=== PATIENT | male | born 1940 | race Caucasian/White ===

== ENCOUNTER → 2018-09-14 | Outpatient (CLI) | payer MEDICARE, OTHER ==
[~2018-09-14] MED LIST: ASPI325 PO; ASPI81CH PO; ATOR20; Aspirin325 MG; CLOP75 PO; COLCHICINE0.6 MG PO; ISOMON20 PO; Isosorbide Mono30 MG PO; LEVSOD112; LEVSOD112 PO; LEVSOD137 PO; LISI5; METO25ER PO; METO50; METPRE4DP PO; NEBI5 PO; PRAV20 PO; RED YEAST RICE30 GM; ROSU10TA PO; Red Yeast Rice600 MG PO
[2018-09-14 17:52] LABS: Source, Urine Clean Catch
[2018-09-14 17:57] LABS: Bilirubin, Urine Neg (Neg); Blood, Urine 3+ (Neg); Glucose Qualitative, Urine Neg (Neg); Ketones, Urine Neg (Neg); Leukocyte Esterase, Urine 3+ (Neg); Nitrite, Urine Pos (Neg); Protein, Urine 2+ (Neg); Urobilinogen, Urine 1+ (Normal)
[2018-09-14 18:09] LABS: Appearance, Urine Cloudy (Clear); Color, Urine Yellow (P-Yellow)
[2018-09-14 18:14] LABS: Bacteria Many /hpf; Squamous Epithelial Cells Not Seen /hpf (Few); White Blood Cells, Urine TNTC /hpf (0-5)
== END | disposition home or self-care (01) ==
LOC: LAB 17:47 → LAB SHORT 17:47
PROVIDERS: Family Medicine
DX: I25.110 Atherosclerotic heart disease of native coronary artery with unstable angina pectoris (principal)
CPT/HCPCS: 81001; 87077; 87086; 87186

== ENCOUNTER 2018-09-20 18:09 | Emergency (ER) | payer MEDICARE, OTHER ==
[~2018-09-20] VITALS: Ht 180.3 cm; Wt 130.6 kg
[2018-09-20 18:55] LABS: BASOPHILS ABSOLUTE AUTO 0.03 K/mm3 (0.00-0.23); BASOPHILS PERCENT AUTO 1 % (0-2); EOSINOPHILS ABSOLUTE AUTO 0.14 K/mm3 (0.00-0.68); EOSINOPHILS PERCENT AUTO 3 % (0-6); Hematocrit 32.9 % (37.0-53.0); Hemoglobin 9.7 g/dL (13.5-17.5); IMMATURE GRAN ABSOLUTE AUTO 0.03 K/mm3 (0.00-0.10); IMMATURE GRAN PERCENT AUTO 1 % (0-1); LYMPHOCYTES ABSOLUTE AUTO 0.49 K/mm3 (0.84-5.20); LYMPHOCYTES PERCENT AUTO 10 % (21-46); MONOCYTES PERCENT AUTO 6 % (4-13); Mean Corpuscular HGB 31.1 pg (26.0-34.0); Mean Corpuscular HGB Conc 29.5 g/dL (31.5-36.5); Mean Corpuscular Volume 105 fL (80-100); NEUTROPHILS ABSOLUTE AUTO 4.18 K/mm3 (1.96-9.15); NEUTROPHILS PERCENT AUTO 81 % (41-73); Platelet Count 194 K/mm3 (150-400); RDW Coefficient Variation 17.4 % (11.7-14.2); RDW Standard Deviation 66.4 fL (35.1-46.3); Red Blood Cell Count 3.12 M/mm3 (4.30-5.90); White Blood Cell Count 5.17 K/mm3 (4.00-11.30)
[2018-09-20 19:19] LABS: Alanine Aminotransfer (ALT/SGP 26 U/L (12-78); Albumin, Blood 3.4 g/dL (3.4-5.0); Albumin/Globulin Ratio 1.1 (0.8-1.8); Alk Phos 203 U/L (50-136); Anion Gap 5 mmol/L (6-16); Aspartate Aminotrans (AST/SGOT 21 U/L (12-37); Bilirubin, Total 0.9 mg/dL (0.1-1.0); Blood Urea Nitrogen 14 mg/dL (8-24); Bun/Creatinine Ratio 15.1 (12.0-20.0); CO2, Blood 29 mmol/L (21-32); Calcium, Blood 8.6 mg/dL (8.5-10.1); Chloride, Blood 105 mmol/L (98-108); Creatinine, Blood 0.93 mg/dL (0.60-1.20); Glomerular Filtration Rate >60 (60-); Glucose, Blood 96 mg/dL (70-99); Potassium, Blood 3.5 mmol/L (3.5-5.5); Sodium, Blood 139 mmol/L (136-145); Total Protein, Blood 6.4 g/dL (6.4-8.2)
== END 2018-09-20 21:10 | disposition home or self-care (01) ==
LOC: ER 18:09
PROVIDERS: Physician Assistant
DX: I82.401 Acute embolism and thrombosis of unspecified deep veins of right lower extremity (principal); M79.661 Pain in right lower leg; Z88.8 Allergy status to other drugs, medicaments and biological substances; Z79.899 Other long term (current) drug therapy; Z95.1 Presence of aortocoronary bypass graft; Z87.891 Personal history of nicotine dependence
CPT/HCPCS: 36415; 80053; 85025; 93971; 99284-25

== ENCOUNTER → 2019-11-05 | Outpatient (CLI) | payer MEDICARE, OTHER ==
[2019-11-05 14:04] LABS: BASOPHILS ABSOLUTE AUTO 0.03 K/mm3 (0.00-0.23); BASOPHILS PERCENT AUTO 1 % (0-2); EOSINOPHILS ABSOLUTE AUTO 0.22 K/mm3 (0.00-0.68); EOSINOPHILS PERCENT AUTO 5 % (0-6); Hematocrit 41.2 % (37.0-53.0); IMMATURE GRAN ABSOLUTE AUTO 0.01 K/mm3 (0.00-0.10); IMMATURE GRAN PERCENT AUTO 0 % (0-1); LYMPHOCYTES PERCENT AUTO 15 % (21-46); MONOCYTES PERCENT AUTO 7 % (4-13); Mean Corpuscular HGB 30.4 pg (26.0-34.0); Mean Corpuscular HGB Conc 31.6 g/dL (31.5-36.5); Mean Corpuscular Volume 96 fL (80-100); Mean Platelet Volume 10.5 fL (9.1-12.4); NEUTROPHILS ABSOLUTE AUTO 2.92 K/mm3 (1.96-9.15); NEUTROPHILS PERCENT AUTO 72 % (41-73); Platelet Count 147 K/mm3 (150-400); RDW Coefficient Variation 14.6 % (11.7-14.2); RDW Standard Deviation 50.5 fL (35.1-46.3); Red Blood Cell Count 4.28 M/mm3 (4.30-5.90); White Blood Cell Count 4.08 K/mm3 (4.00-11.30)
[2019-11-05 14:11] LABS: Alanine Aminotransfer (ALT/SGP 27 U/L (12-78); Albumin, Blood 3.8 g/dL (3.4-5.0); Albumin/Globulin Ratio 1.3 (0.8-1.8); Alk Phos 136 U/L (40-126); Anion Gap 8 mmol/L (6-16); Aspartate Aminotrans (AST/SGOT 25 U/L (12-37); Bilirubin, Total 1.1 mg/dL (0.1-1.0); Blood Urea Nitrogen 20 mg/dL (8-24); Bun/Creatinine Ratio 24.1 (12.0-20.0); CO2, Blood 27 mmol/L (21-32); Calcium, Blood 8.5 mg/dL (8.5-10.1); Chloride, Blood 106 mmol/L (98-108); Creatinine, Blood 0.83 mg/dL (0.60-1.20); Glomerular Filtration Rate >60 (60-); Glucose, Blood 98 mg/dL (70-99); Potassium, Blood 4.2 mmol/L (3.5-5.5); Sodium, Blood 141 mmol/L (136-145); Total Protein, Blood 6.8 g/dL (6.4-8.2)
== END | disposition home or self-care (01) ==
LOC: LAB EV 13:56 → LAB SHORT 13:56
PROVIDERS: Internal Medicine
DX: I10 Essential (primary) hypertension (principal); R33.9 Retention of urine, unspecified
CPT/HCPCS: 80053; 85025; 87086

== ENCOUNTER 2019-11-20 15:16 | Emergency (ER) | payer MEDICARE, OTHER ==
[~2019-11-20] VITALS: Ht 180.3 cm; Wt 126.5 kg
[2019-11-20] MEDS ORDERED: FURO20 PO (17:50)
[2019-11-20] MEDS ORDERED: ELIQUIS5 MG PO (17:50)
[2019-11-20] MEDS ORDERED: METO25 PO (17:51)
[2019-11-20] MEDS ORDERED: POTCHL20ER PO (17:51)
[2019-11-20] MEDS ORDERED: TAMS.4ER PO (17:52)
[2019-11-20] MEDS ORDERED: ROSU10TA PO (17:52)
[2019-11-20] MEDS ORDERED: ASPI81CH PO (17:52)
[2019-11-20 19:09] LABS: BASOPHILS ABSOLUTE AUTO 0.03 K/mm3 (0.00-0.23); BASOPHILS PERCENT AUTO 1 % (0-2); EOSINOPHILS ABSOLUTE AUTO 0.22 K/mm3 (0.00-0.68); EOSINOPHILS PERCENT AUTO 5 % (0-6); Hematocrit 44.6 % (37.0-53.0); Hemoglobin 14.2 g/dL (13.5-17.5); IMMATURE GRAN ABSOLUTE AUTO 0.01 K/mm3 (0.00-0.10); IMMATURE GRAN PERCENT AUTO 0 % (0-1); LYMPHOCYTES ABSOLUTE AUTO 0.65 K/mm3 (0.84-5.20); LYMPHOCYTES PERCENT AUTO 14 % (21-46); MONOCYTES ABSOLUTE AUTO 0.33 K/mm3 (0.16-1.47); MONOCYTES PERCENT AUTO 7 % (4-13); Mean Corpuscular HGB 30.7 pg (26.0-34.0); Mean Corpuscular HGB Conc 31.8 g/dL (31.5-36.5); Mean Corpuscular Volume 97 fL (80-100); Mean Platelet Volume 11.2 fL (9.1-12.4); NEUTROPHILS ABSOLUTE AUTO 3.26 K/mm3 (1.96-9.15); NEUTROPHILS PERCENT AUTO 73 % (41-73); Platelet Count 175 K/mm3 (150-400); RDW Coefficient Variation 14.2 % (11.7-14.2); RDW Standard Deviation 50.7 fL (35.1-46.3); Red Blood Cell Count 4.62 M/mm3 (4.30-5.90)
[2019-11-20 19:15] LABS: Source, Urine Catheter
[2019-11-20 19:20] LABS: Appearance, Urine Clear (Clear); Bilirubin, Urine Neg (Neg); Blood, Urine Neg (Neg); Color, Urine Yellow (P-Yellow); Glucose Qualitative, Urine Neg (Neg); Ketones, Urine Neg (Neg); Leukocyte Esterase, Urine Neg (Neg); Nitrite, Urine Neg (Neg); Protein, Urine Neg (Neg); Urobilinogen, Urine NORM (Normal)
[2019-11-20 19:22] LABS: Alanine Aminotransfer (ALT/SGP 27 U/L (12-78); Albumin, Blood 3.7 g/dL (3.4-5.0); Albumin/Globulin Ratio 1.1 (0.8-1.8); Alk Phos 141 U/L (50-136); Anion Gap 10 mmol/L (6-16); Aspartate Aminotrans (AST/SGOT 23 U/L (12-37); Bilirubin, Total 0.9 mg/dL (0.1-1.0); Blood Urea Nitrogen 26 mg/dL (8-24); Bun/Creatinine Ratio 24.5 (12.0-20.0); CO2, Blood 25 mmol/L (21-32); Calcium, Blood 8.4 mg/dL (8.5-10.1); Chloride, Blood 106 mmol/L (98-108); Creatinine, Blood 1.06 mg/dL (0.60-1.20); Globulin, Blood 3.4 g/dL (2.2-4.0); Glomerular Filtration Rate >60 (60-); Glucose, Blood 103 mg/dL (70-99); Salicylate <1.7 mg/dL (2.8-20.0); Sodium, Blood 141 mmol/L (136-145); Total Protein, Blood 7.1 g/dL (6.4-8.2); Troponin I <0.015 ng/mL (0.000-0.040)
[2019-11-20 19:33] LABS: U Amphetamine Screen Not Detected; U Barbituate Screen Not Detected; U Benzodiazapine Screen Not Detected; U Buprenorphine Screen Not Detected; U Cannabinoids Screen Not Detected; U Cocaine Screen Not Detected; U Methadone Screen Not Detected; U Methamphetamine Screen Not Detected; U Opiates Screen Not Detected; U Oxycodone Screen Not Detected; U Phencyclidine Screen Not Detected; U Propoxyphene Screen Not Detected
[2019-11-20 19:41] LABS: Acetaminophen, Random <2.0 ug/mL (10.0-30.0)
== END 2019-11-20 20:20 | disposition home or self-care (01) ==
LOC: ER 15:16
PROVIDERS: Emergency Medicine
DX: G45.9 Transient cerebral ischemic attack, unspecified (principal); I48.91 Unspecified atrial fibrillation; E03.9 Hypothyroidism, unspecified; Z88.8 Allergy status to other drugs, medicaments and biological substances; Z79.899 Other long term (current) drug therapy; Z79.82 Long term (current) use of aspirin; Z87.891 Personal history of nicotine dependence
CPT/HCPCS: 36415; 70450; 80053; 81003; 82140; 84484; 85025; 93005; 93010; 99285-25; G0480

== ENCOUNTER 2021-03-09 12:42 | Inpatient (IN) | payer MEDICARE, OTHER ==
[~2021-03-09] VITALS: Ht 177.8 cm; Wt 139.0 kg
[~2021-03-09 12:42] MED LIST changes: +ELIQUIS5 MG PO; +FURO20 PO; +METO25 PO; +POTCHL20ER PO; +TAMS.4ER PO
[2021-03-09 13:10] LABS: BASOPHILS ABSOLUTE AUTO 0.02 K/mm3 (0.00-0.23); BASOPHILS PERCENT AUTO 0 % (0-2); EOSINOPHILS ABSOLUTE AUTO 0.01 K/mm3 (0.00-0.68); EOSINOPHILS PERCENT AUTO 0 % (0-6); Hemoglobin 9.7 g/dL (13.5-17.5); IMMATURE GRAN ABSOLUTE AUTO 0.08 K/mm3 (0.00-0.10); IMMATURE GRAN PERCENT AUTO 1 % (0-1); LYMPHOCYTES ABSOLUTE AUTO 0.45 K/mm3 (0.84-5.20); LYMPHOCYTES PERCENT AUTO 4 % (21-46); MONOCYTES ABSOLUTE AUTO 0.55 K/mm3 (0.16-1.47); MONOCYTES PERCENT AUTO 5 % (4-13); Mean Corpuscular HGB 30.6 pg (26.0-34.0); Mean Corpuscular HGB Conc 31.3 g/dL (31.5-36.5); Mean Corpuscular Volume 98 fL (80-100); Mean Platelet Volume 10.4 fL (9.1-12.4); NEUTROPHILS PERCENT AUTO 89 % (41-73); NRBC ABSOLUTE 0.02 K/mm3 (0.00-0.02); NRBC Auto 0.2 /100 WBC (0.0-0.2); Platelet Count 194 K/mm3 (150-400); RDW Coefficient Variation 15.6 % (11.7-14.2); RDW Standard Deviation 55.4 fL (35.1-46.3); Red Blood Cell Count 3.17 M/mm3 (4.30-5.90); White Blood Cell Count 10.51 K/mm3 (4.00-11.30)
[2021-03-09 13:24] LABS: Alanine Aminotransfer (ALT/SGP 21 U/L (12-78); Albumin, Blood 2.6 g/dL (3.4-5.0); Albumin/Globulin Ratio 0.7 (0.8-1.8); Alk Phos 108 U/L (50-136); Anion Gap 7 mmol/L (6-16); Aspartate Aminotrans (AST/SGOT 22 U/L (12-37); Bilirubin, Total 1.2 mg/dL (0.1-1.0); Blood Urea Nitrogen 20 mg/dL (8-24); Bun/Creatinine Ratio 21.5 (12.0-20.0); CO2, Blood 26 mmol/L (21-32); Chloride, Blood 103 mmol/L (98-108); Creatinine, Blood 0.93 mg/dL (0.60-1.20); Globulin, Blood 3.8 g/dL (2.2-4.0); Glomerular Filtration Rate >60 (60-); Glucose, Blood 146 mg/dL (70-99); Potassium, Blood 3.6 mmol/L (3.5-5.5); Sodium, Blood 136 mmol/L (136-145); Total Protein, Blood 6.4 g/dL (6.4-8.2); Troponin I 0.475 ng/mL (0.000-0.040)
[2021-03-09 13:54] LABS: International Normalized Ratio 1.23; Prothrombin Time Results 12.7 Sec (9.7-11.5)
[2021-03-09 18:08] LABS: Influenza A, PCR NEGATIVE (NEGATIVE); Influenza B, PCR NEGATIVE (NEGATIVE); Resp Syncytial Virus, PCR NEGATIVE (NEGATIVE); SARS-Cov-2 (COVID-19) PCR, MMC NEGATIVE (NEGATIVE)
--- NOTE | 2021-03-09 19:30 | NUR ---
ARRIVED TO ICU/ASSUMED CARE PATIENT ARRIVED TO ICU @ 191 AWAKE AND ALERT. PATIENT TRACKS TO SOUND AND MAKES APPROPRIATE CONVERSATION WITH STAFF. ON ROOM AIR AND DENIES SOB. PATIENT HAS CANE AND BELONGINGS BAG WITH HIM. 20G IV TO RT AC PATENT W/ NO INFUSIONS. BRICEÑO PATENT AND DRAINING CLEAR YELLOW URINE TO GRAVITY. DENIES CHEST PAIN AT THIS TIME.
--- NOTE | 2021-03-09 21:00 | NUR ---
CRITICAL TROPONIN RECIEVED CALL FOR CRITICAL TROPONIN OF 1.120; INCREASED FROM 0.475. PATIENT DENIES CHEST PAIN AND SOB. NO CHANGES TO CARDIAC RHYTHM. CHARGE NURSE NOTIFIED AND CALL MADE TO DR. DORSEY. CARDIOLOGY CONSULTED AND CALL MADE TO ANSWERING SERVICE.
[2021-03-09] MEDS ORDERED: XARELTO20 MG PO (23:45)
[2021-03-09] MEDS ORDERED: B-COMPLEX WITH1 EAC3 PO (23:49)
[2021-03-09] MEDS ORDERED: B12-FOLIC ACID1 EACH PO (23:49)
[2021-03-09] MEDS ORDERED: CALCIUM 500 MG1 EAC2 PO (23:50)
[2021-03-09] MEDS ORDERED: TORSE20 PO ×2 (23:50→23:51)
[2021-03-09] MEDS ORDERED: MAGNESIUM OXID500 MG PO (23:51)
[2021-03-09] MEDS ORDERED: XTANDI40 M1 PO (23:52)
[2021-03-09] MEDS ORDERED: XGEVA120 MG/1.1 SQ ×2 (23:53→23:54)
[2021-03-10 03:58] LABS: BASOPHILS ABSOLUTE AUTO 0.02 K/mm3 (0.00-0.23); BASOPHILS PERCENT AUTO 0 % (0-2); EOSINOPHILS ABSOLUTE AUTO 0.01 K/mm3 (0.00-0.68); EOSINOPHILS PERCENT AUTO 0 % (0-6); Hemoglobin 8.7 g/dL (13.5-17.5); IMMATURE GRAN ABSOLUTE AUTO 0.07 K/mm3 (0.00-0.10); IMMATURE GRAN PERCENT AUTO 1 % (0-1); LYMPHOCYTES ABSOLUTE AUTO 0.35 K/mm3 (0.84-5.20); LYMPHOCYTES PERCENT AUTO 4 % (21-46); MONOCYTES ABSOLUTE AUTO 0.45 K/mm3 (0.16-1.47); MONOCYTES PERCENT AUTO 5 % (4-13); Mean Corpuscular HGB 30.2 pg (26.0-34.0); Mean Corpuscular HGB Conc 31.1 g/dL (31.5-36.5); Mean Corpuscular Volume 97 fL (80-100); Mean Platelet Volume 10.4 fL (9.1-12.4); NEUTROPHILS ABSOLUTE AUTO 8.07 K/mm3 (1.96-9.15); NEUTROPHILS PERCENT AUTO 90 % (41-73); Platelet Count 179 K/mm3 (150-400); RDW Coefficient Variation 15.8 % (11.7-14.2); RDW Standard Deviation 55.3 fL (35.1-46.3); Red Blood Cell Count 2.88 M/mm3 (4.30-5.90); White Blood Cell Count 8.97 K/mm3 (4.00-11.30)
[2021-03-10 05:30] LABS: Anion Gap 10 mmol/L (6-16); Blood Urea Nitrogen 15 mg/dL (8-24); Bun/Creatinine Ratio 17.7 (12.0-20.0); CO2, Blood 26 mmol/L (21-32); Calcium, Blood 7.3 mg/dL (8.5-10.1); Chloride, Blood 102 mmol/L (98-108); Creatinine, Blood 0.85 mg/dL (0.60-1.20); Ferritin, Serum 240 ng/mL (26-388); Glomerular Filtration Rate >60 (60-); Glucose, Blood 102 mg/dL (70-99); Iron Serum 32 ug/dL (65-175); Percent Saturation 14.3 % (20.0-50.0); Potassium, Blood 3.4 mmol/L (3.5-5.5); Sodium, Blood 138 mmol/L (136-145); Total Iron Binding Capacity 223 ug/dL (250-450)
--- NOTE | 2021-03-10 06:30 | NUR ---
SHIFT SUMMARY PATIENT ON HOME CPAP MOST OF SHIFT, ROOM AIR WHEN AWAKE. SPO2 MAINTAINED MID TO HIGH 90'S. PATIENT DENIED CHEST PAIN AND SOB DURING SHIFT. BRICEÑO PATENT AND DRAINED 1450ML ORANGE URINE. CARDIOLOGY CONSULT PLACED, SEE "CRITICAL TROPONIN" NURSE NOTE. NO OTHER MAJOR CHANGES DURING SHIFT.
--- NOTE | 2021-03-10 08:18 | NUR ---
ASSUMED PT CARE AT 0700. PT A/OX4, VSS, DENIES SOB, CP, N/V, NUMBNESS/TINGLING. MD BURDEN IN TO SEE PT, PLAN FOR CARDIO EVAL, THEN POSSIBLE DOWNGRADE TO MEDICAL STATUS LATER TODAY.
--- NOTE | 2021-03-10 14:59 | NUR ---
CRITICAL VALUE TROP 1.5 REPORTED TO MD TURNER AT 1415. MD TURNER SPEAKING WITH PT AND PT'S SHARLA ON THE PHONE. PT HAS MADE REMARKS TO RN ABOUT NOT WANTING ANY INTERVENTIONS, AND PREFERRING TO BE AT HOME. PALLIATIVE CARE CONSULT OBTAINED.
--- NOTE | 2021-03-10 15:31 | NUR ---
PT HAS NEW DRY HACKING COUGH. MILD EXP WHEEZE. PT C/O "FEELING FULL" AND "BLOATED." SATS 96% RA. APPROX 1 L UO. ON FLUID RESTRICTION. MD BURDEN CALLED SECONDARY TO CONCERN FOR POSSIBLE FLUID OVERLOAD. ORDER OBTAINED FOR CXR.
--- NOTE | 2021-03-10 18:06 | NUR ---
SHIFT SUMMARY PT A/OX4, NEURO INTACT. WEAK AND DECONDITIONED. UP TO CHAIR AND BSC WITH 2 PERSON ASSIST AND FWW PRN. 100% V PACED. TROP ELEVATED 1.5; MD TURNER HAS CONSULTED. HEPARIN GTT INCREASED TO 20UNITS/HR THIS SHIFT. NEW COUGH AND WHEEZE, C/O "FEELING FULL," ABD DISTENDED, SEVERE EDEMA TO BLE. LASIX BID GIVEN. REPEAT CXR. FLUID RESTRICTION. STOOL SOFTENERS ORDERED. PALLIATIVE CARE CONSULT OBTAINED DUE TO PT'S REMARKS ABOUT NOT WANTING INVASIVE PROCEDURES OR EXTENDED TIME IN HOSPITAL. TOLERATING PO DIET. BM TODAY X1.
[2021-03-11 01:59] LABS: BASOPHILS ABSOLUTE AUTO 0.03 K/mm3 (0.00-0.23); BASOPHILS PERCENT AUTO 0 % (0-2); EOSINOPHILS ABSOLUTE AUTO 0.03 K/mm3 (0.00-0.68); EOSINOPHILS PERCENT AUTO 0 % (0-6); Hematocrit 27.7 % (37.0-53.0); IMMATURE GRAN ABSOLUTE AUTO 0.06 K/mm3 (0.00-0.10); IMMATURE GRAN PERCENT AUTO 1 % (0-1); LYMPHOCYTES ABSOLUTE AUTO 0.51 K/mm3 (0.84-5.20); LYMPHOCYTES PERCENT AUTO 6 % (21-46); MONOCYTES PERCENT AUTO 6 % (4-13); Mean Corpuscular HGB 30.9 pg (26.0-34.0); Mean Corpuscular HGB Conc 32.5 g/dL (31.5-36.5); Mean Corpuscular Volume 95 fL (80-100); Mean Platelet Volume 10.6 fL (9.1-12.4); NEUTROPHILS ABSOLUTE AUTO 7.19 K/mm3 (1.96-9.15); NEUTROPHILS PERCENT AUTO 86 % (41-73); Platelet Count 179 K/mm3 (150-400); RDW Coefficient Variation 15.8 % (11.7-14.2); Red Blood Cell Count 2.91 M/mm3 (4.30-5.90); White Blood Cell Count 8.32 K/mm3 (4.00-11.30)
[2021-03-11 02:16] LABS: Albumin, Blood 2.3 g/dL (3.4-5.0); Anion Gap 8 mmol/L (6-16); Blood Urea Nitrogen 18 mg/dL (8-24); Bun/Creatinine Ratio 21.6 (12.0-20.0); CO2, Blood 27 mmol/L (21-32); Calcium, Blood 7.3 mg/dL (8.5-10.1); Chloride, Blood 102 mmol/L (98-108); Creatinine, Blood 0.84 mg/dL (0.60-1.20); Glomerular Filtration Rate >60 (60-); Glucose, Blood 112 mg/dL (70-99); Magnesium, Blood 2.2 mg/dL (1.6-2.4); Phosphorus, Blood 2.7 mg/dL (2.5-4.9); Potassium, Blood 3.3 mmol/L (3.5-5.5); Sodium, Blood 137 mmol/L (136-145)
--- NOTE | 2021-03-11 05:52 | NUR ---
END OF SHIFT SUMMARY: Pt was alert and oriented x4, pt stated he had a good night sleep tonight. No major events or significant changes from yesterday. Expressed that him and his have spoken about going on hospice and not wanting to do any invasive procedures. Heparin was titrated to 22 units per pharmacy, APTT lab draw due at 1000. He is very pleasant and is able to appropriately ask for help when needed.
--- NOTE | 2021-03-11 07:00 | NUR ---
ASSUME CARE: I have assumned care of pt. At this time he is resting in bed with CPAP in place.
[2021-03-11] MEDS ORDERED: Isosorbide Mono30 MG PO (12:45)
--- NOTE | 2021-03-11 13:27 | NUR ---
DISCHARGE: Pt discharged home with on hospice. He was wheeled out via wheelchair by [facility]ICE CENTER ASSISTANT. Discharge and prescription education and return precautions provided. Pt and verbalize understanding and agreement.
--- NOTE | 2021-03-13 11:38 | NUR ---
Per Dr. Louis discharge appropriate on: 03/11/21. Patient and do not oppose discharge. Transportation to residence provided by [facility]. Spoke with [facility] this morning to discuss hospice agency selection. [facility] would like to continue services with [facility] and selected [facility]. Due to inclement weather, [facility] office closed today; I will contact Shyanne Barros on 03/14 to coordinate hospice services. DME: [facility] will order if there is a need; none ordered today or upon discharge. Patient does not have any barriers to discharge on this date and patient has a strong support network of family and friends. [facility] Care will contact patient to schedule hospital follow up. [facility] stated, urology has contacted patient.
== END 2021-03-11 13:36 | disposition hospice, home (50) | DRG 280 ==
LOC: ER 12:42 → ICUW 16:33 → PCU 16:33 → ICUW 17:47
PROVIDERS: Emergency Medicine; Family Medicine; Internal Medicine; ADMIT Hospitalist
DX: I21.4 Non-ST elevation (NSTEMI) myocardial infarction (principal); I50.33 Acute on chronic diastolic (congestive) heart failure; C79.51 Secondary malignant neoplasm of bone; Z68.42 Body mass index [BMI] 45.0-49.9, adult; I48.0 Paroxysmal atrial fibrillation; E03.9 Hypothyroidism, unspecified; Z66 Do not resuscitate; Z51.5 Encounter for palliative care; C61 Malignant neoplasm of prostate; M19.90 Unspecified osteoarthritis, unspecified site; E66.01 Morbid (severe) obesity due to excess calories; I11.0 Hypertensive heart disease with heart failure; J44.9 Chronic obstructive pulmonary disease, unspecified; M54.30 Sciatica, unspecified side; G47.33 Obstructive sleep apnea (adult) (pediatric); D50.9 Iron deficiency anemia, unspecified; Z20.822 Contact with and (suspected) exposure to COVID-19; E78.5 Hyperlipidemia, unspecified; N32.0 Bladder-neck obstruction; I25.110 Atherosclerotic heart disease of native coronary artery with unstable angina pectoris; Z95.1 Presence of aortocoronary bypass graft; Z95.2 Presence of prosthetic heart valve; Z98.890 Other specified postprocedural states; Z95.0 Presence of cardiac pacemaker; Z98.41 Cataract extraction status, right eye; Z87.891 Personal history of nicotine dependence; Z79.01 Long term (current) use of anticoagulants; Z86.718 Personal history of other venous thrombosis and embolism; Z95.5 Presence of coronary angioplasty implant and graft; Z88.8 Allergy status to other drugs, medicaments and biological substances; Z91.041 Radiographic dye allergy status; Z79.82 Long term (current) use of aspirin; Z79.899 Other long term (current) drug therapy
CPT/HCPCS: 0241U; 36415; 51701; 51702; 71045; 80048; 80053; 80069; 82607; 82728; 82746; 83540; 83550; 83735; 83880; 84484; 85025; 85610; 85730; 90686; 93005; 93010; 96374; 99285-25; A9270; C8923; C8929; G0008; J1644; J1940; J7060; Q9957